=== PATIENT | male | born 1975 | race Caucasian/White ===

== ENCOUNTER 2020-08-11 12:17 | Inpatient (IN) | payer OTHER ==
[~2020-08-11] VITALS: Ht 180.3 cm; Wt 84.8 kg
[2020-08-11 13:03] LABS: HEMOGLOBIN 13.4 gm/dl (14.0-17.5); RED BLOOD COUNT 4.72 M/UL (4.20-5.50); WHITE BLOOD COUNT 21.6 K/UL (4.5-11.0)
[2020-08-11 13:26] LABS: BUN/CREATININE RATIO 11 (0-10)
[2020-08-11] MEDS ORDERED: ALBUTEROL1.25 MG/3 INH (18:35)
[2020-08-11] MEDS ORDERED: GABAPENTIN800 MG PO (18:37)
[2020-08-11] MEDS ORDERED: ATORVASTATIN CA20 MG PO (18:37)
[2020-08-11] MEDS ORDERED: CARVEDILOL3.125 MG PO (18:38)
[2020-08-11] MEDS ORDERED: CITALOPRAM HBR20 MG PO ×2 (18:39→18:41)
[2020-08-11] MEDS ORDERED: CITALOPRAM HBR40 MG PO (18:40)
[2020-08-11] MEDS ORDERED: CLOPIDOGREL75 MG PO (18:41)
[2020-08-11] MEDS ORDERED: LAMICTAL TAB 2525 MG PO (18:42)
[2020-08-11] MEDS ORDERED: PROTONIX40 MG PO (18:42)
[2020-08-11] MEDS ORDERED: LISINOPRIL20 MG PO (18:42)
[2020-08-11] MEDS ORDERED: TAMSULOSIN HCL0.4 MG PO (18:43)
[2020-08-11 23:17] LABS: BORDETELLA PARAPERTUSSIS Not Detected (Not Detectd); BORDETELLA PERTUSSIS Not Detected (Not Detectd); CHLAMYDIA PNEUMONIAE Not Detected (Not Detectd); CORONAVIRUS HKU1 Not Detected (Not Detectd); CORONAVIRUS NL63 Not Detected (Not Detectd); CORONAVIRUS OC43 Not Detected (Not Detectd); CORONOAVIRUS 229E Not Detected (Not Detectd); HUMAN METAPNEUMOVIRUS Not Detected (Not Detectd); HUMAN RHINOVIRUS/ENTEROVIRUS Not Detected (Not Detectd); INFLUENZA A Not Detected (Not Detectd); INFLUENZA B Not Detected (Not Detectd); MYCOPLASMA PNEUMONIAE Not Detected (Not Detectd); PARAINFLUENZA VIRUS 1 Not Detected (Not Detectd); PARAINFLUENZA VIRUS 2 Not Detected (Not Detectd); PARAINFLUENZA VIRUS 3 Not Detected (Not Detectd); PARAINFLUENZA VIRUS 4 Not Detected (Not Detectd); RESPIRATORY SYNCYTIAL VIRUS Not Detected (Not Detectd)
[2020-08-12 00:31] LABS: SARS-CoV-2 NOT DETECTED (Not Detectd)
[2020-08-12 05:23] LABS: RED BLOOD COUNT 4.25 M/UL (4.20-5.50); WHITE BLOOD COUNT 16.8 K/UL (4.5-11.0)
[2020-08-12 05:27] LABS: HEMOGLOBIN 11.3 gm/dl (14.0-17.5)
[2020-08-12 05:44] LABS: BUN/CREATININE RATIO 13 (0-10)
--- NOTE | 2020-08-12 12:34 | NUR ---
1200: PATIENT REPORTS TO [facility] THAT HE WANTS THE IV REMOVED BECAUSE HE IS LEAVING AND HIS RIDE IS HERE TO GET HIM. RN SPEAKS WITH PATIENT AND INFORMED HIM THAT HE WOULD BE LEAVING AGAINST MEDICAL ADVICE AND THAT THE MD HAD ORDERED HIM SOMETHING FOR PAIN. PATIENT STATES, "I AM LEAVING, I KNOW WHAT I NEED". RN AGAIN INSTRUCTED ON THE NEED TO SEEK COUNSELING FOR DRUG ADDICITION. PATIENT REFUSES. 1205: RN NOTIFIED DR VALDOVINOS OF PATIENT DECISION TO LEAVE AMA. 1210: PATIENT SIGNED AMA FORM 1215: PATIENT LEFT FLOOR AMBULATORY, ALONE.
[2020-08-13 08:14] LABS: HIV SCREEN 4TH GENERATION WRFX Non Reactive (Non Reactive)
[2020-08-13 11:14] LABS: HBSAG SCREEN Negative (Negative); HEP A AB, IGM Negative (Negative); HEP B CORE AB, IGM Negative (Negative); HEP C VIRUS AB >11.0 (0.0-0.9)
== END 2020-08-12 12:18 | disposition left against medical advice (07) | DRG 177 ==
LOC: ER1 12:17 → CDU 16:52 → MED SURG 4 22:18
PROVIDERS: Physician Assistant; ADMIT Family Medicine
DX: J85.1 Abscess of lung with pneumonia (principal); B37.1 Pulmonary candidiasis; J96.21 Acute and chronic respiratory failure with hypoxia; J90 Pleural effusion, not elsewhere classified; E87.1 Hypo-osmolality and hyponatremia; Z20.822 Contact with and (suspected) exposure to COVID-19; G89.4 Chronic pain syndrome; J43.9 Emphysema, unspecified; R63.4 Abnormal weight loss; E87.6 Hypokalemia; I25.10 Atherosclerotic heart disease of native coronary artery without angina pectoris; F17.210 Nicotine dependence, cigarettes, uncomplicated; D69.6 Thrombocytopenia, unspecified; L89.152 Pressure ulcer of sacral region, stage 2; Z88.0 Allergy status to penicillin; Z82.49 Family history of ischemic heart disease and other diseases of the circulatory system; Z87.81 Personal history of (healed) traumatic fracture; I25.2 Old myocardial infarction; Z95.5 Presence of coronary angioplasty implant and graft
CPT/HCPCS: 0240U; 36415; 36600; 71045; 71260; 80053; 80074; 80307; 82803; 83605; 83735; 83880; 84100; 85025; 85027; 85610; 87015; 87040; 87070; 87077; 87116; 87186; 87205; 87206; 87389; 87633; 96365; 96366; 96368; 99285; J1450; J1650; J2185; J3370; J7070; Q9967